=== PATIENT | male | born 1975 | race Caucasian/White ===

== ENCOUNTER 2025-05-27 23:09 | Emergency (ER) | payer SELFPAY ==
[~2025-05-27] VITALS: Ht 160 cm; Wt 86.0 kg
[2025-05-27 23:16] VITALS: O2SAT 98
[2025-05-28 00:29] LABS: BASOPHILS % 0.4 % (0.0-2.0); EOSINOPHILS % 1.8 % (0.0-5.0); HEMATOCRIT. 46.6 % (42.0-52.0); HEMOGLOBIN. 16.2 g/dL (14.0-18.0); LYMPHOCYTES % 34.9 % (20.0-50.0); MEAN PLATELET VOLUME 8.5 fl (7.4-10.4); MONOCYTES % 8.8 % (2.0-8.0); NEUTROPHILS % 54.1 % (40.0-76.0); PLATELET 185 x1000/uL (130-400); RED BLOOD CELL COUNT 5.16 mill/uL (4.7-6.1); RED CELL DISTRIBUTION WIDTH 12.9 % (11.6-14.6)
[2025-05-28 00:30] LABS: CLARITY URINE CLEAR (CLEAR); COLOR URINE YELLOW (YELLOW); GLUCOSE URINE 1+ (NEGATIVE); KETONES URINE NEGATIVE (NEGATIVE); LEUKOCYTE ESTERASE URINE NEGATIVE (NEGATIVE); NITRITE URINE NEGATIVE (NEGATIVE); OCCULT BLOOD URINE NEGATIVE (NEGATIVE); PH URINE 8.0 (4.5-8.0); PROTEIN URINE NEGATIVE (NEGATIVE); SPECIFIC GRAVITY URINE 1.009 (1.005-1.030); UROBILINOGEN URINE 1.0 E.U./dL (0.2-1.0)
[2025-05-28 00:38] LABS: CREATININE 0.9 mg/dL (0.6-1.3); UREA NITROGEN BLOOD 9 mg/dL (9-23)
[2025-05-28 01:42] LABS: WBC URINE 0-2 /hpf (0-2)
[2025-05-28 01:43] LABS: BACTERIA URINE NONE SEEN; RBC URINE NONE SEEN /hpf (0-2); SQUAMOUS EPITHELIAL CELL URINE NONE SEEN /lpf (RARE/1+)
[2025-05-28] MEDS ORDERED: NAPR-1176 MT (03:04)
[2025-05-28 03:32] VITALS: BP 155/97; PULSE 75; RESP 18; TEMP 36.5; O2SAT 97
== END 2025-05-28 03:33 | disposition home or self-care (01) ==
LOC: ER 23:09
DX: N50.3 Cyst of epididymis (principal); I86.1 Scrotal varices
CPT/HCPCS: 36415; 74176; 76870; 80048; 81003; 85025; 93005; 93976; 99284